=== PATIENT | female | born 1965 | race African-American/Black ===

== ENCOUNTER 2018-08-05 21:45 | Emergency (ER) | payer BC, MEDICAID ==
[~2018-08-05] VITALS: Ht 152.4 cm; Wt 70.3 kg
[2018-08-05] MEDS ORDERED: LABETALOL HCL 5 MG/ML ML 20ML VIAL IV ONE (23:45)
[2018-08-06] MEDS ORDERED: cloNIDine HCL 0.1 MG TAB PO ONE (01:30)
[2018-08-06] MEDS ORDERED: hydrALAZINE HCL 20 MG/ML VL IV ONE (01:30)
[2018-08-06 02:47] VITALS: BP 136/72
== END 2018-08-06 03:02 | disposition home or self-care (01) ==
LOC: ER 21:45
DX: I10 Essential (primary) hypertension (principal); M53.82 Other specified dorsopathies, cervical region
CPT/HCPCS: 72125; 93005; 96374; 96375; 99284; J0360